=== PATIENT | female | born 1980 | race American Indian/Alaskan Native ===

== ENCOUNTER 2016-04-27 07:53 | Emergency (ER) | payer OTHER ==
[2016-04-27 08:47] VITALS: BP 114/80
--- NOTE | 2016-04-27 09:16 | Emergency Department Report ---
ED Female HPI - General Chief complaint: Back Pain/Injury Stated complaint: BLOOD IN URINE/BACK PAIN Time Seen by Provider: 04/27/16 09:02 Source: patient Mode of arrival: Ambulatory Limitations: No Limitations - History of Present Illness Initial comments: Patient c/o blood in her urine x Wednesday (6 days). states treated 4 days ago at urgent care for bladder infection w/ Cipro 500 mg BID x 5 days and told if blood not resolved in 3 days to go to ED. States blood in urine not resolved and she began having pain in her right flank and lower pelvic area last night into this a.m. Reports pain when bladder fills up with urine that revolves over 1 hour after emptying bladder. Denies fever, chills, N/V/D, blood in stool, vaginal pain, bleed/discharge. LMP 04/12/16. - Related Data Home Medications Medication Instructions Recorded Confirmed Last Taken Famotidine [Pepcid] 10 mg PO BID 12/11/12 12/11/12 12/10/12 22:00 Previous Rx's Medication Instructions Recorded Last Taken Type Naproxen Sodium (Nf) [Anaprox DS] 550 mg PO BID PRN #14 tablet 02/06/13 Unknown Rx Acetaminophen/Codeine [Tylenol #3] 1 tab PO Q6H PRN #10 tab 04/27/16 Unknown Rx Ciprofloxacin HCl [Ciprofloxacin 500 mg PO BID #12 tablet 04/27/16 Unknown Rx TAB] Allergies Allergy/AdvReac Type Severity Reaction Status Date / Time No Known Allergies Allergy Unverified 12/11/12 03:51 ED Review of Systems ROS: Stated complaint: BLOOD IN URINE/BACK PAIN Other details as noted in HPI Comment: All other systems reviewed and negative ED Past Medical Hx - Surgical History Additional Surgical History: tonsil remove - Social History Smoking Status: Never Smoker - Medications Home Medications: Home Medications Medication Instructions Recorded Confirmed Last Taken Type Famotidine [Pepcid] 10 mg PO BID 12/11/12 12/11/12 12/10/12 22:00 History Naproxen Sodium (Nf) [Anaprox DS] 550 mg PO BID PRN #14 tablet 02/06/13 Unknown Rx Acetaminophen/Codeine [Tylenol #3] 1 tab PO Q6H PRN #10 tab 04/27/16 Unknown Rx Ciprofloxacin HCl [Ciprofloxacin 500 mg PO BID #12 tablet 04/27/16 Unknown Rx TAB] ED Physical Exam - General Limitations: No Limitations General appearance: alert, in no apparent distress - Head Head exam: Present: atraumatic, normocephalic - Eye Eye exam: Present: normal appearance, PERRL, EOMI. Absent: scleral icterus, conjunctival injection, periorbital swelling, periorbital tenderness - ENT ENT exam: Present: normal exam, normal orophraynx, mucous membranes moist, TM's normal bilaterally - Neck Neck exam: Present: normal inspection, full ROM. Absent: tenderness, meningismus, lymphadenopathy - Respiratory Respiratory exam: Present: normal lung sounds bilaterally. Absent: respiratory distress, wheezes - Cardiovascular Cardiovascular Exam: Present: regular rate, normal rhythm - GI/Abdominal GI/Abdominal exam: Present: soft, tenderness (suprapubic), normal bowel sounds. Absent: distended, guarding, rebound, rigid, organomegaly - Speculum exam: Present: normal speculum exam, vaginal discharge. Absent: erythema, cervical discharge, vaginal bleeding, foreign body, laceration Bi-manual exam: Present: normal bi-manual exam. Absent: cervical motion tendernes, adnexal tenderness, uterine enlargement, uterine tenderness - Extremities Exam Extremities exam: Present: normal inspection, full ROM, normal capillary refill. Absent: tenderness, pedal edema, joint swelling, calf tenderness - Back Exam Back exam: Present: normal inspection, full ROM, CVA tenderness (R). Absent: CVA tenderness (L), vertebral tenderness - Neurological Exam Neurological exam: Present: alert, oriented X3, normal gait, reflexes normal. Absent: motor sensory deficit - Psychiatric Psychiatric exam: Present: normal affect, normal mood - Skin Skin exam: Present: warm, dry, intact, normal color. Absent: rash, cyanosis, diaphoretic, erythema, petechiae, pallor ED Course Vital Signs 04/27/16 08:43 Temperature 98.1 F Pulse Rate 76 Respiratory 20 Rate Blood Pressure 114/80 O2 Sat by Pulse 100 Oximetry ED Medical Decision Making - Lab Data Result diagrams: 04/27/16 09:12 04/27/16 09:12 Lab results reviewed. - Radiology Data Radiology results: report reviewed According to radiology report of CT abdomen/pelvis w/o. No acute abdominopelvic pathology (see report for details). - Differential Diagnosis UTI, Cystitis, pyelonephritis, cervicitis. Critical care attestation.: If time is entered above; I have spent that time in minutes in the direct care of this critically ill patient, excluding procedure time. ED Disposition Clinical Impression: Cystitis Disposition: DISCHARGED TO HOME OR SELFCARE Is pt being admited?: No Does the pt Need Aspirin: No Condition: Stable Instructions: Flank Pain (ED), Urinary Tract Infection in Women (ED) Referrals: PRIMARY CAREMD [Primary Care Provider] - 2-3 Days GISSEL JORDAN MD [Staff Physician] - 2-3 Days [facility] [Outside] - 2-3 Days
[2016-04-27 09:25] LABS: Basophils % (Auto) 0.7 % (0.0-1.8); Eosinophils % (Auto) 2.9 % (0.0-4.3); Hematocrit 37.6 % (30.3-42.9); Hemoglobin 12.3 gm/dl (10.1-14.3); Mean Corpuscular HGB Conc 33 % (30-34); Mean Corpuscular Hemoglobin 27 pg (28-32); Mean Corpuscular Volume 81 fl (79-97); Platelet Count 289 K/mm3 (140-440); Red Blood Count 4.63 M/mm3 (3.65-5.03); Red Cell Distribution Width 16.1 % (13.2-15.2); White Blood Count 7.5 K/mm3 (4.5-11.0)
[2016-04-27 09:31] LABS: Bacteria,Urine 2+ /HPF (Negative); Bilirubin,Urine NEG (Negative); Blood,Urine LG (Negative); Ketones,Urine NEG (Negative); Leukocyte Esterase,Urine LG (Negative); Mucus,Urine FEW /HPF; Nitrite,Urine NEG (Negative); Urobilinogen,Urine < 2.0 mg/dL (<2.0)
[2016-04-27 09:40] LABS: Anion Gap 19 mmol/L; BUN/Creatinine Ratio 13.33; Blood Urea Nitrogen 8 mg/dL (7-17); Calcium 8.9 mg/dL (8.4-10.2); Carbon Dioxide 22 mmol/L (22-30); Chloride 99.8 mmol/L (98-107); Glucose 92 mg/dL (65-100); Potassium 3.5 mmol/L (3.6-5.0); Sodium 137 mmol/L (137-145)
--- NOTE | 2016-04-27 11:26 | Cat Scan Report ---
CT scan of abdomen and pelvis without IV contrast: History: Right flank pain and pelvic pain. Hematuria. Findings: Normal lung bases. No pleural pericardial effusion. Normal liver spleen pancreas and gallbladder. Normal adrenals. Normal kidney parenchyma and bladder. No hydronephrosis. No radiopaque calculi. Suspicious 2 cm circumscribed hypodensity left kidney. No free intraperitoneal fluid or air. No evidence of adenopathy. Normal aorta. Gaseous colon with moderate amount of stool in ascending colon. Normal appendix. No evidence of diverticulitis. Impression: No acute abdominal findings.
== END 2016-04-27 11:43 | disposition home or self-care (01) ==
LOC: ED 07:53
DX: N30.91 Cystitis, unspecified with hematuria (principal); R10.2 Pelvic and perineal pain
CPT/HCPCS: 36415; 74176; 80048; 81001; 81025; 85025